=== PATIENT | female | born 1935 | race Caucasian/White ===

== ENCOUNTER → 2019-05-21 00:01 | Outpatient (BNVA) | payer MEDICARE, SELFPAY | PROVIDERS: Family Provider Nurse Practitioner Family; PCP Nurse Practitioner Family; Visit Provider Nurse Practitioner Family | DX: M19.90 Unspecified osteoarthritis, unspecified site (principal); E78.5 Hyperlipidemia, unspecified | CPT/HCPCS: 71046; 80053; 80061; 85025 ==

== ENCOUNTER → 2020-09-25 14:47 | Outpatient (BNVA) | payer MEDICARE, SELFPAY | PROVIDERS: Family Provider Nurse Practitioner Family; PCP Nurse Practitioner Family; Visit Provider Nurse Practitioner Family | DX: M81.0 Age-related osteoporosis without current pathological fracture (principal); E78.5 Hyperlipidemia, unspecified; M25.562 Pain in left knee | CPT/HCPCS: 80053; 80061; 82306; 85025 ==

== ENCOUNTER → 2020-10-07 10:34 | Day surgery (SDC) | payer MEDICARE, SELFPAY ==
[2020-10-07] MEDS: denosumab 60 mg SDV SUBCUT (11:02)
[2020-10-07 11:03] VITALS: BMI 27.4
[2020-10-07 11:07] VITALS: BP 147/74; PULSE 68; RESP 18; TEMP 36.6; O2SAT 98
== END ==
PROVIDERS: PCP Nurse Practitioner Family; Visit Provider Nurse Practitioner Family
DX: M25.569 Pain in unspecified knee (principal)
CPT/HCPCS: 73560; 73565; 96372; J0897

== ENCOUNTER → 2021-02-12 16:23 | Outpatient (BNVA) | payer MEDICARE, SELFPAY | PROVIDERS: PCP Family Medicine; Referring Provider Family Medicine; Visit Provider Nurse Practitioner Family | DX: E78.5 Hyperlipidemia, unspecified (principal); G25.81 Restless legs syndrome; H61.23 Impacted cerumen, bilateral; M25.562 Pain in left knee; G89.29 Other chronic pain; M81.0 Age-related osteoporosis without current pathological fracture; Z87.19 Personal history of other diseases of the digestive system | CPT/HCPCS: 80053; 80061; 82306; 82607; 84443; 85025 ==

== ENCOUNTER → 2021-03-18 09:14 | Outpatient (BNVA) | payer OTHER, SELFPAY | PROVIDERS: PCP Family Medicine; Visit Provider Nurse Practitioner Family | DX: R73.9 Hyperglycemia, unspecified (principal); Z87.19 Personal history of other diseases of the digestive system | CPT/HCPCS: 83036; 85025 ==

== ENCOUNTER → 2021-03-30 08:39 | Day surgery (SDC) | payer MEDICARE, SELFPAY ==
[2021-03-30 09:00] VITALS: BP 105/57; PULSE 68; RESP 18; TEMP 36.2; O2SAT 96
[2021-03-30 09:11] VITALS: BMI 26.5
[2021-03-30 09:41] LABS: Blood Urea Nitrogen 15 mg/dL (8-23); Calcium 8.5 mg/dL (8.5-10.5); Carbon Dioxide 27 mmol/L (22-29); Chloride 103 mmol/L (98-107); Glucose 102 mg/dL (65-115); Osmolality Calculated 289 mOsm/kg (285-295); Sodium 139 mmol/L (136-145)
[2021-03-30] MEDS: denosumab 60 mg SDV SUBCUT (09:51)
== END ==
PROVIDERS: PCP Family Medicine; Visit Provider Nurse Practitioner Family
DX: M81.0 Age-related osteoporosis without current pathological fracture (principal)
CPT/HCPCS: 36415; 80048; 96372; J0897

== ENCOUNTER → 2021-05-26 10:00 | Outpatient (BNVA) | payer MEDICARE, SELFPAY | PROVIDERS: PCP Nurse Practitioner Family; Visit Provider Nurse Practitioner Family | DX: Z87.19 Personal history of other diseases of the digestive system (principal) | CPT/HCPCS: 85025 ==

== ENCOUNTER → 2021-09-29 12:28 | Day surgery (SDC) | payer MEDICARE, SELFPAY ==
[2021-09-29 12:59] VITALS: BP 110/56; PULSE 69; RESP 18; TEMP 36.1; O2SAT 95
[2021-09-29 13:15] LABS: Calcium 8.5 mg/dL (8.5-10.5)
[2021-09-29] MEDS: denosumab 60 mg SDV SUBCUT (13:17)
== END ==
LOC: GILAB 12:31
PROVIDERS: PCP Nurse Practitioner Family; Visit Provider Nurse Practitioner Family
DX: M81.0 Age-related osteoporosis without current pathological fracture (principal)
CPT/HCPCS: 36415; 82310; 96372; J0897

== ENCOUNTER → 2021-10-13 10:19 | Outpatient (BNVA) | payer MEDICARE, SELFPAY | PROVIDERS: PCP Nurse Practitioner Family; Visit Provider Family Medicine | DX: E78.5 Hyperlipidemia, unspecified (principal); M19.90 Unspecified osteoarthritis, unspecified site; E55.9 Vitamin D deficiency, unspecified; Z12.31 Encounter for screening mammogram for malignant neoplasm of breast; H61.23 Impacted cerumen, bilateral; G25.81 Restless legs syndrome | CPT/HCPCS: 80053; 80061; 82306; 85025 ==

== ENCOUNTER 2021-11-17 09:19 | Outpatient (CLI) | payer MEDICARE, SELFPAY ==
--- NOTE | 2021-11-17 09:31 | MM_ITS ---
WS: [email or web address] BILATERAL SCREENING DIGITAL BREAST TOMOSYNTHESIS MAMMOGRAM WITH CAD HISTORY: SCREENING COMPARISON: 08/03/2018, 12/13/2017 and 04/26/2017 Bilateral CC and MLO views with tomosynthesis and synthetic mammography submitted. Computer aided det ection analyzed. Breast composition: The breasts are heterogeneously dense, which may obscure small masses. No suspici ous masses, microcalcifications or architectural distortion. Biopsy clip upper outer quadrant RIGHT b reast. Bilateral calcifications. Asymmetries in the LEFT breast are similar to the study from 2017. MM/[place] [id number] IMPRESSION: BI-RADS: 2-Benign FOLLOW UP: 1 Year Follow-up
== END 2021-11-17 09:20 | disposition home or self-care (01) ==
LOC: RAD 09:22
PROVIDERS: PCP Nurse Practitioner Family; Visit Provider Family Medicine
DX: M17.12 Unilateral primary osteoarthritis, left knee (principal); Z12.31 Encounter for screening mammogram for malignant neoplasm of breast
CPT/HCPCS: 20610; 77063; 77067; J0702; J3490

== ENCOUNTER → 2022-04-05 13:18 | Outpatient (BNVA) | payer MEDICARE, SELFPAY | PROVIDERS: PCP Nurse Practitioner Family; Visit Provider Nurse Practitioner Family | DX: E55.9 Vitamin D deficiency, unspecified (principal); E78.5 Hyperlipidemia, unspecified; G25.81 Restless legs syndrome | CPT/HCPCS: 80053; 80061; 82306; 82607; 83735; 84443; 85025 ==

== ENCOUNTER → 2022-04-06 08:52 | Day surgery (SDC) | payer MEDICARE, SELFPAY ==
[2022-04-06 09:15] VITALS: BP 148/63; PULSE 73; RESP 18; TEMP 36.4; O2SAT 97
[2022-04-06] MEDS: denosumab 60 mg SDV SUBCUT (09:21)
== END ==
PROVIDERS: PCP Nurse Practitioner Family; Visit Provider Nurse Practitioner Family
DX: M17.11 Unilateral primary osteoarthritis, right knee (principal); M81.0 Age-related osteoporosis without current pathological fracture
CPT/HCPCS: 96372; 99024; J0897

== ENCOUNTER 2022-04-23 14:42 | Outpatient (CLI) | payer MEDICARE, SELFPAY ==
--- NOTE | 2022-04-23 15:00 | XR_ITS ---
WS: [email or web address] DEXA (DUAL ENERGY X-RAY ABSORPTIOMETRY) Bone mineral density was performed using a [employer] machine. HISTORY: M81.0 - Age-related osteoporosis without current pathologic... COMPARISON: 03/06/2019 Lumbar spine BMD (L1-L3): 0.944 T score: -1.9 Z score: 0.0 Left forearm BMD: 0.511 g/cm2. T score: -4.2 Z score: -1.0 Compared to the prior study from 03/06/2019. Lumbar spine bone mineral density has decreased by 0.1%. Bilateral hips bone mineral density has decreased by 1.7%. XR/XR DEXA axial skeleton* [id number] IMPRESSION: OSTEOPOROSIS based upon the WHO classification for females. No significant change of bone mineral density within the lumbar spine or forear m.
== END 2022-04-23 14:43 | disposition home or self-care (01) ==
LOC: RAD 14:44
PROVIDERS: PCP Nurse Practitioner Family; Visit Provider Nurse Practitioner Family
DX: M81.0 Age-related osteoporosis without current pathological fracture (principal)
CPT/HCPCS: 77080

== ENCOUNTER → 2022-08-03 09:58 | Outpatient (BNVA) | payer MEDICARE, SELFPAY | PROVIDERS: PCP Nurse Practitioner Family; Visit Provider Nurse Practitioner Family | DX: M17.12 Unilateral primary osteoarthritis, left knee (principal) | CPT/HCPCS: 20610; 73560; 73565; 99214; 99398; J1100; J2795; J3301 ==

== ENCOUNTER → 2022-09-10 09:55 | Outpatient (BNVA) | payer MEDICARE, SELFPAY | PROVIDERS: PCP Nurse Practitioner Family; Visit Provider Nurse Practitioner Family | DX: E78.5 Hyperlipidemia, unspecified (principal); M81.0 Age-related osteoporosis without current pathological fracture; E55.9 Vitamin D deficiency, unspecified | CPT/HCPCS: 80053; 80061; 82306; 84443; 85025 ==

== ENCOUNTER → 2022-09-21 09:37 | Day surgery (SDC) | payer MEDICARE, SELFPAY ==
[2022-09-21 09:45] VITALS: BP 165/69; PULSE 72; RESP 18; TEMP 36.2; O2SAT 97
[2022-09-21] MEDS: denosumab 60 mg SDV SUBCUT (09:50)
--- NOTE | 2022-09-21 09:50 | PC.NURSE ---
Calcium level from 09/10/22 noted at 8.5. Prolia injection given as ordered.
== END ==
PROVIDERS: PCP Nurse Practitioner Family; Visit Provider Nurse Practitioner Family
DX: M81.0 Age-related osteoporosis without current pathological fracture (principal); Z79.899 Other long term (current) drug therapy
CPT/HCPCS: 96372; J0897

== ENCOUNTER 2022-11-26 09:20 | Outpatient (CLI) | payer MEDICARE, SELFPAY ==
--- NOTE | 2022-11-26 09:27 | MM_ITS ---
WS: [email or web address] Bilateral screening 3D tomosynthesis digital mammogram, 11/26/2022 Clinical Data: SCREENING Comparison: 11/17/2021, 08/03/2018, 12/13/2017, 05/12/2017, 04/26/2017, 01/17/2014, 01/03/2014, 10/31/2012, , 03/12/2010, 03/11/2009, 03/08/2008, 03/07/2007, 03/03/2006. Findings: The breast parenchymal pattern shows heterogeneous density. No spiculated masses or clustered calcifi cations are seen. There are no secondary signs of carcinoma. There are biopsy clips in the lateral as pect of the right breast. MM/[place] [id number] Impression: 1. Negative bilateral mammogram unchanged. 2. Recommend annual screening mammograms. BIRADS: 1-Negative FOLLOW UP: 1 Year Follow-up The CAD brick paving checker was used.
== END 2022-11-26 09:21 | disposition home or self-care (01) ==
LOC: RAD 09:24
PROVIDERS: PCP Nurse Practitioner Family; Visit Provider Nurse Practitioner Family
DX: Z12.31 Encounter for screening mammogram for malignant neoplasm of breast (principal)
CPT/HCPCS: 77063; 77067

== ENCOUNTER → 2023-04-22 09:56 | Outpatient (BNVA) | payer MEDICARE, SELFPAY | PROVIDERS: PCP Nurse Practitioner Family; Visit Provider Nurse Practitioner Family | DX: E78.5 Hyperlipidemia, unspecified (principal); M19.90 Unspecified osteoarthritis, unspecified site; G25.81 Restless legs syndrome; E55.9 Vitamin D deficiency, unspecified; M81.0 Age-related osteoporosis without current pathological fracture; G47.00 Insomnia, unspecified; R07.81 Pleurodynia | CPT/HCPCS: 80053; 80061; 82306; 82607; 83735; 84443; 85025 ==

== ENCOUNTER → 2023-05-25 17:29 | Outpatient (BNVA) | payer MEDICARE, SELFPAY | PROVIDERS: PCP Nurse Practitioner Family; Visit Provider Nurse Practitioner Family | DX: M81.0 Age-related osteoporosis without current pathological fracture (principal) | CPT/HCPCS: 80048 ==

== ENCOUNTER 2023-05-28 09:37 | Outpatient (CLI) | payer MEDICARE, SELFPAY ==
--- NOTE | 2023-05-28 10:17 | XRR_ITS ---
PROCEDURE INFORMATION: Exam: XR Lumbosacral Spine Exam date and time: 05/28/2023 10:18 AM Age: 87 years old Clinical indication: Low back pain; Prior surgery; Surgery date: 6+ months; Surgery type: Lumbar, saima hips; Additional info: M54.50 - low back pain, unspecified TECHNIQUE: Imaging protocol: Radiologic exam of the lumbosacral spine. Views: 2 or 3 views. COMPARISON: CT lumbar spine wo con* [id number] 06/21/2017 9:17 AM FINDINGS: Bones/joints: L4-L5 posterior fusion changes without hardware complication. Unchanged L1 compression deformity. No evidence of acute fracture. Stable anterolisthesis of L4 on L5 and mild rightward curvature of the lumbar spine which may partially be due to position. Multilevel spondylosis. Soft tissues: No acute findings. XR/XR lumbar spine 2-3V* [id number] IMPRESSION: No new/acute findings.
== END 2023-05-28 09:38 | disposition home or self-care (01) ==
PROVIDERS: PCP Nurse Practitioner Family; Visit Provider Nurse Practitioner Family
DX: M54.50 Low back pain, unspecified (principal)
CPT/HCPCS: 72100

== ENCOUNTER → 2023-06-20 10:21 | Outpatient (BNVA) | payer MEDICARE, SELFPAY | PROVIDERS: PCP Nurse Practitioner Family; Visit Provider Nurse Practitioner | DX: M17.12 Unilateral primary osteoarthritis, left knee | CPT/HCPCS: 20610; 73560; 73565; 99214; J1100; J2795; J3301 ==

== ENCOUNTER 2023-06-24 09:42 | Outpatient (CLI) | payer MEDICARE, SELFPAY ==
--- NOTE | 2023-06-24 10:15 | MR_ITS ---
WS: [email or web address] MRI LUMBAR SPINE NONCONTRAST HISTORY: M54.50 - Low back pain, unspecified COMPARISON: 10/09/2013 TECHNIQUE: Sagittal and axial multisequence imaging is submitted. Marked increase in the cervical lordosis and thoracic kyphosis. T3 anterior wedging, 50%. T5 anterior wedging, 20%. On the sagittal STIR sequence which included the very lower thoracic vertebral bodies there is marrow edema in portions of T10 and T11 consistent with acute compression fractures. T11 fracture by approx imately 20% without retropulsion identified. Increase in the lumbar lordosis. L4 anterolisthesis by 5.7 mm. 2 mm anterolisthesis of L5. There is b een a progression of the anterolisthesis at L4 and L5 since 2013. Patient is status post posterior alvin mbar fusion at L4-5 which is new since 2013. L1 compression fracture by 20% is chronic and stable since 2013. 2 mm retropulsion of the posterior s uperior endplate. No acute fracture in the lumbar spine. Conus terminates normally at L1-2 disc level. L1-L2: Mild annular disc bulge. Mild foraminal narrowing. L2-L3: Mild annular disc bulging and vertebral body osteophytosis. There is mild disc encroachment up on the subarticular recesses and foramina. Mild central and bilateral foraminal stenosis. Stenosis ayon s progressed since the prior study. L3-L4: Mild diffuse annular disc bulging. Ligamentum flavum and mild facet arthritis. Mild bilateral foraminal stenosis and mild central stenosis just inferior to the disc level. L4-L5: Unroofing of the disc with bilateral facet arthritis. There is a posterior lumbar fusion at L4 -5. Mild central and bilateral foraminal stenosis. L5-S1: Mild annular disc bulging. There is a shallow central disc protrusion contacting the S1 nerve roots, RIGHT greater than LEFT. Mild central and subarticular recess stenosis. Bilateral parapelvic cysts within each renal pelvis. Severe atrophy of the psoas muscles. IMPRESSION: 1. Interval posterior lumbar fusion at L4-5 which is new since 2013. 2. Very minimal increase in the grade 1 spondylolisthesis of L4 now measuring 5.7 mm. 3. New acute compression fractures are noted at T10 and T11. Incompletely visualized is these are on ly visualized on the STIR sequence of the lumbar spine. Consider further evaluation by MRI of the [facility] spine. Noncontrast MRI thoracic spine would provide additional information. 4. No new acute lumbar spine fracture. 5. Remote T3 and T5 anterior compression fractures. 6. L2-3: Mild central and bilateral foraminal stenosis with mild progression since the prior study. 7. L3-4: Mild central and bilateral foraminal stenosis. 8. L4-5: Mild central and bilateral foraminal stenosis. 9. L5-S1: Shallow central disc protrusion contacting the S1 nerve roots, RIGHT greater than LEFT. Mi ld central and subarticular recess stenosis.
== END 2023-06-24 09:43 | disposition home or self-care (01) ==
LOC: RAD 09:42
PROVIDERS: PCP Nurse Practitioner Family; Visit Provider Nurse Practitioner Family
DX: M43.16 Spondylolisthesis, lumbar region (principal); G89.29 Other chronic pain; S22.070A Wedge compression fracture of T9-T10 vertebra, initial encounter for closed fracture; S22.080A Wedge compression fracture of T11-T12 vertebra, initial encounter for closed fracture; S22.030A Wedge compression fracture of third thoracic vertebra, initial encounter for closed fracture; S22.050A Wedge compression fracture of T5-T6 vertebra, initial encounter for closed fracture; X58.XXXA Exposure to other specified factors, initial encounter; M48.07 Spinal stenosis, lumbosacral region; M51.27 Other intervertebral disc displacement, lumbosacral region
CPT/HCPCS: 72148

== ENCOUNTER 2023-10-11 10:49 | Emergency (ER) | payer MEDICARE, SELFPAY ==
[2023-10-11 10:56] VITALS: BP 180/106; PULSE 77; RESP 18; TEMP 36.4; O2SAT 95; BMI 25.6
--- NOTE | 2023-10-11 11:06 | ED_ITS ---
HPI - Extremity Injury (Upper) General: Chief Complaint: Extremity Injury, Upper Stated Complaint: fall, left hand pain Time Seen by Provider: 10/11/23 11:05 Source: patient Mode of arrival: ambulatory Limitations: no limitations History of Present Illness: Patient is a nice 88-year-old female presents to ED today with a complaint of a left hand injury that she sustained just prior to arrival after accidentally tripping and falling. Patient states that hand is the only thing she injured. Denies striking her head or LOC. MD complaint: injury to: left and hand Onset (ago): hour(s) Other Extremity Injury: Left: hand Place: outdoors (parking lot) Severity: moderate Relieving factors: immobilization Exacerbating factors: movement of extremity Context: fall and direct blow Associated symptoms: Reports no associated symptoms; Denies neck pain or weakness in extremities Review of Systems Eyes: Denies: change in vision or blurry vision Card: Denies: palpitations, lightheadedness, syncope or pre-syncope Musc: Reports: extremity pain (L hand) and extremity swelling (L hand); Denies: neck pain or back pain Skin/Breast: Reports: other (ecchymosis/swelling dorsal L hand) Neuro: Denies: numbness in extremities, weakness in extremities or sensory changes PFSH ED PFSH: Medical History Primary osteoarthritis of left knee Mass of right breast on mammogram Sleep difficulties Myalgia Abnormal mammogram Risk for falls Osteoporosis, post-menopausal Arthritis Hyperlipidemia Surgical History History of total hip replacement History of hysterectomy History of arthroscopic surgery of shoulder Previous back surgery Family History Sister Cancer sister had colon and breast cancer Brother Heart disease Social History Smoking and tobacco/nicotine status: never used tobacco/nicotine Second hand smoke exposure: No Alcohol intake: never Substance/Drug Use: never Lives independently: Yes Household members: spouse Marital status: service: No Current occupational status: retired Current gender identity: Female Special gaston needs: No Agree to transfusion: Yes Female Reproductive History: Spontaneous abortions: No Physical Exam Const: COMMON NORMALS: no acute distress, average body habitus, no limitations, healthy appearing, alert and well nourished Extremity: COMMON NORMALS: capillary refill normal GENERAL: Yes normal exam except as noted LEFT UPPER EXTREMITY: Yes hand & digits (ecchymosis/swelling dorsal ulnar L hand) Left hand and digits: Yes inspection (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) and Yes neurovascular exam (normal) OTHER: ecchymosis/swelling overlying L dorsal 3-5 MCP joints; tenderness/acute bony deformities vs chronic RA deformities noted to L 4-5 digits Neuro: COMMON NORMALS: moves all extremities, no focal motor deficits and no sensory deficits noted SENSORIUM/ORIENTATION: Yes alert Procedures Orthopedic Fracture Reduction Fracture #1: Time Out Performed: Yes Side: left Fracture Reduction Location: finger Analgesia: nerve block Technique: direct manipulation and traction/counter-traction Post Reduction X-rays Demonstrate: other (better alignment-still angulated ) Post-reduction neuro exam: intact Post-reduction vascular exam: intact Splint Applied: Yes Patient Tolerated Procedure: well Course Vital Signs: Vital signs: Vital Signs Temperature 97.5 F L 10/11/23 10:56 Pulse Rate 72 10/11/23 12:00 Respiratory Rate 17 10/11/23 12:00 Blood Pressure 176/117 10/11/23 12:00 Pulse Oximetry 95 10/11/23 12:00 Oxygen Delivery Me thod Room Air 10/11/23 12:00 MDM - Extremity Injury (Upper) Medical Decision Making Patient here following a trip and fall and injury to her left hand. She has proximal phalanx fractures of her fourth and fifth digits-fifth digit being significantly displaced. Attempted reduction/better alignment and although improved, still with quite a bit of angulation. Patient will be splinted and follow-up with orthopedics. Medical Records I reviewed the patient's medical records. Lab Data Radiology Impressions Hand X-Ray 10/11/23 11:06 IMPRESSION: 1. Angulated mid shaft fracture of the proximal fifth phalanx with significant displacement. 2. Comminuted fracture of the proximal two thirds of the fourth proximal phalanx. 3. Severe degenerative changes with [id number]-[id number] involving the IP joints with some associated mild subluxations. Degenerative changes also seen in the MP joints as well as the CMC joint of the thumb and the wrist. Finger X-Ray 10/11/23 11:44 IMPRESSION: 1. Angulated mid shaft fracture of the proximal fifth phalanx. 2. Comminuted mildly angulated fracture of the proximal fourth phalanx. 3. Severe degenerative changes as detailed above. All radiology interpretation(s) finalized by discharge Discharge Plan Discharge Patient Disposition: Home Clinical Impression: Closed fracture of proximal phalanx of ring finger Qualifiers: Encounter type: initial encounter Fracture alignment: nondisplaced Laterality: left Qualified Code(s): S62.645A - Nondisplaced fracture of proximal phalanx of left ring finger, initial encounter for closed fracture Closed fracture of proximal phalanx of little finger Qualifiers: Encounter type: initial encounter Fracture alignment: displaced Laterality: left Qualified Code(s): S62.617A - Displaced fracture of proximal phalanx of left little finger, initial encounter for closed fracture Condition: Stable Prescriptions: New hydrocodone-acetaminophen 5-325 mg tablet 1 tab PO Q6H PRN (Reason: pain) Qty: 14 0RF No Action glucosamine-chondroitin 900 mg tablet 1 mg PO DAILY calcium carbonate [Calcium 600] 600 mg calcium (1,500 mg) tablet 600 mg PO DAILY trazodone 50 mg tablet See Rx Instructions PO .qhs Qty: 30 2RF Rx Instructions: 1/2 to 1 tablet orally QHS; simvastatin 20 mg tablet See Rx Instructions .ROUTE .COMPLEX Qty: 90 1RF Dose Instruction: Take 1 tablet by mouth once daily Rx Instructions: Take 1 tablet by mouth once daily ropinirole 2 mg tablet See Rx Instructions .ROUTE .COMPLEX Qty: 270 1RF Dose Instruction: TAKE 1 TABLET BY MOUTH IN THE MORNING AND 1 TO 2 IN THE EVENING Rx Instructions: TAKE 1 TABLET BY MOUTH IN THE MORNING AND 1 TO 2 IN THE EVENING meloxicam 15 mg tablet See Rx Instructions .ROUTE .COMPLEX Qty: 90 1RF Dose Instruction: Take 1 tablet by mouth once daily Rx Instructions: Take 1 tablet by mouth once daily Prolia 60 mg/mL syringe 60 mg SUBCUT ONCE Qty: 1 0RF Gel-One 30 mg/3 mL syringe 3 ml intra-articular ONCE Qty: 3 0RF triamcinolone acetonide [Kenalog] 40 mg/mL suspension 40 mg intra-articular ONCE Qty: 1 0RF bupivacaine (PF) 0.5 % (5 mg/mL) solution 5 mg intra-articular ONCE Qty: 2 0RF lidocaine (PF) 10 mg/mL (1 %) solution 10 mg intra-articular ONCE Qty: 2 0RF tizanidine 2 mg tablet 2 mg PO Q8H PRN (Reason: muscle spasticity) Qty: 30 0RF Monovisc 88 mg/4 mL syringe 88 mg intra-articular .every 6 months PRN (Reason: For OA) 180 Days Qty: 4 0RF Fish Oil Capsule 1,000 mg PO DAILY cholecalciferol (vitamin D3) [Vitamin D3] 25 mcg (1,000 unit) Tablet 25 mcg PO DAILY Discharge Orders: Discharge ED (Routine); Ordered 10/11/23 Ordered By: Betina Montemayor Referrals: Patsy Banuelos FNP [Primary Care Provider] - Patient Instructions: Fractures - Phalanx (Finger), Finger Fracture (ED) Activity Restrictions/Additional Instructions: As discussed you need to stay in your splint at all times until follow-up with orthopedics. Coding Level of Care Code ED Desktop Publishing Operator for Ayesha Jung
--- NOTE | 2023-10-11 11:06 | XR_ITS ---
WS: [email or web address] Exam: XR hand LT min 3V* [id number] Date/Time of Exam: 10/11/2023 11:10 AM Reason For Exam: trauma There is a midshaft fracture of the proximal fifth phalanx with dorsal angulation of the distal fragm ent. There is also a nondisplaced comminuted fracture of the distal end of the fourth proximal phalan x. The base of the proximal fourth phalanx is also fractured with some impaction. No other acute frac tures are identified. Severe degenerative changes in the IP joints with [id number] and subluxations . Moderate degenerative change in the MP joints as well as the CMC joint of the thumb. 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 XR/XR hand LT min 3V* [id number] IMPRESSION: 1. Angulated mid shaft fracture of the proximal fifth phalanx with significant displacement. 2. Comminuted fracture of the proximal two thirds of the fourth proximal phalan x. 3. Severe degenerative changes with [id number] involving the IP joints with s ome associated mild subluxations. Degenerative changes also seen in the MP join ts as well as the CMC joint of the thumb and the wrist.
--- NOTE | 2023-10-11 11:44 | XR_ITS ---
WS: [email or web address] Exam: XR finger LT min 2V [id number] Date/Time of Exam: 10/11/2023 11:44 AM Reason For Exam: pinky finger fx; post reduction The fourth and fifth fingers are targeted for radiographic evaluation. There is a displaced angulated midshaft fracture of the fifth proximal phalanx. There is dorsal angul ation of the distal fragment. There is also a comminuted fracture of the proximal fourth phalanx with some dorsal angulation of the phalangeal shaft. Mild dorsal angulation of the distal fragment noted. Severe degenerative change in the IP joints. Significant ulnar deviation of the fourth finger. Soft tissue swelling noted. XR/XR finger LT min 2V [id number] IMPRESSION: 1. Angulated mid shaft fracture of the proximal fifth phalanx. 2. Comminuted mildly angulated fracture of the proximal fourth phalanx. 3. Severe degenerative changes as detailed above.
[2023-10-11 12:00] VITALS: BP 176/117; PULSE 72; RESP 17; O2SAT 95
--- NOTE | 2023-10-12 09:08 | DCPLANNER ---
Message sent to Ortho for follow up-As discussed you need to stay in your splint at all times until follow-up with orthopedics.
== END 2023-10-11 12:31 | disposition home or self-care (01) ==
PROVIDERS: Emergency Provider Physician Assistant; PCP Nurse Practitioner Family
DX: S62.645A Nondisplaced fracture of proximal phalanx of left ring finger, initial encounter for closed fracture (principal); S62.617A Displaced fracture of proximal phalanx of left little finger, initial encounter for closed fracture; E78.5 Hyperlipidemia, unspecified; W01.0XXA Fall on same level from slipping, tripping and stumbling without subsequent striking against object, initial encounter
CPT/HCPCS: 26725; 29125; 73130; 73140; 99283

== ENCOUNTER → 2023-11-18 08:16 | Outpatient (BNVA) | payer MEDICARE, SELFPAY | PROVIDERS: PCP Nurse Practitioner Family; Visit Provider Nurse Practitioner | DX: M17.12 Unilateral primary osteoarthritis, left knee (principal) | CPT/HCPCS: 20610; J1100; J2795; J3301 ==

== ENCOUNTER → 2023-11-22 08:57 | Outpatient (BNVA) | payer MEDICARE, SELFPAY | PROVIDERS: PCP Nurse Practitioner Family; Visit Provider Nurse Practitioner Family | DX: E78.5 Hyperlipidemia, unspecified (principal); Z79.899 Other long term (current) drug therapy | CPT/HCPCS: 80053; 80061; 82306; 85025 ==

== ENCOUNTER 2024-01-03 08:41 | Outpatient (CLI) | payer MEDICARE, SELFPAY ==
--- NOTE | 2024-01-03 09:00 | MM_ITS ---
WS: [email or web address] BILATERAL 3D TOMOSYNTHESIS DIGITAL SCREENING MAMMOGRAPHY WITH CAD CLINICAL INFORMATION: SCREENING HISTORY: Screening mammogram. No current complaints. COMPARISON: 11/26/2022 TECHNIQUE: Bilateral CC and MLO views. FINDINGS: The breasts are composed of heterogeneous fibroglandular density tissue, which can limit the detectio n of small underlying mass lesions. No suspicious mass, asymmetry, calcifications, or architectural d istortion. No evidence of malignancy. Biopsy clips RIGHT breast. Incidental punctate and secretory ca lcifications. Dense nodular breast tissue upper outer LEFT breast stable since 2019 MM/[place] [id number] IMPRESSION: BI-RADS: 2-Benign FOLLOW UP: 1 Year Follow-up Recommend return to annual screening mammography.
== END 2024-01-03 08:42 | disposition home or self-care (01) ==
PROVIDERS: PCP Nurse Practitioner Family; Visit Provider Nurse Practitioner Family
DX: Z12.31 Encounter for screening mammogram for malignant neoplasm of breast (principal)
CPT/HCPCS: 77063; 77067

== ENCOUNTER → 2024-01-27 08:45 | Outpatient (BNVA) | payer MEDICARE, SELFPAY | PROVIDERS: PCP Nurse Practitioner Family; Visit Provider Nurse Practitioner | DX: M17.12 Unilateral primary osteoarthritis, left knee (principal); Z71.89 Other specified counseling | CPT/HCPCS: 20610; J1100; J2795; J3301 ==

== ENCOUNTER → 2024-04-27 08:46 | Outpatient (BNVA) | payer MEDICARE, SELFPAY | PROVIDERS: PCP Nurse Practitioner Family; Visit Provider Nurse Practitioner | DX: M17.12 Unilateral primary osteoarthritis, left knee (principal); Z71.89 Other specified counseling | CPT/HCPCS: 20610; J1100; J2795; J3301 ==

== ENCOUNTER → 2024-07-27 08:09 | Outpatient (BNVA) | payer MEDICARE, SELFPAY | PROVIDERS: PCP Nurse Practitioner Family; Visit Provider Nurse Practitioner | DX: M17.12 Unilateral primary osteoarthritis, left knee (principal); Z71.89 Other specified counseling | CPT/HCPCS: 20610; 99213; J7327 ==

== ENCOUNTER → 2024-08-17 08:18 | Outpatient (BNVA) | payer MEDICARE, SELFPAY | PROVIDERS: PCP Nurse Practitioner Family; Visit Provider Nurse Practitioner Family | DX: E78.5 Hyperlipidemia, unspecified (principal); E55.9 Vitamin D deficiency, unspecified; U07.1 COVID-19 | CPT/HCPCS: 80053; 80061; 82306; 82607; 82728; 82746; 83735; 84443; 85025 ==

== ENCOUNTER 2024-08-23 13:12 | Outpatient (CLI) | payer MEDICARE, SELFPAY ==
--- NOTE | 2024-08-23 13:20 | XR_ITS ---
WS: [email or web address] SCREENING DEXA SCAN [facility] CLINICAL INFORMATION: M81.0 - Age-related osteoporosis without current patholog... COMPARISON: 2021 FINDINGS: Left forearm bone mineral density measures 0.48. This corresponds to a T score of -4.5 and Z score of -1.1. Right forearm bone mineral density measures 0.58. This corresponds to a T score of -3.4 of and Z score of 0.0. XR/XR DEXA axial skeleton* [id number] IMPRESSION: Osteoporosis LEFT and RIGHT forearm Patient's FRAX calculated 10 year probability for major osteoporotic fracture i s % and osteoporotic hip fracture is %. Bone mineral density decrease -5.5% LEFT forearm and -6.0% RIGHT forearm
== END 2024-08-23 13:13 | disposition home or self-care (01) ==
PROVIDERS: PCP Nurse Practitioner Family; Visit Provider Nurse Practitioner Family
DX: M81.0 Age-related osteoporosis without current pathological fracture (principal)
CPT/HCPCS: 77080

== ENCOUNTER → 2024-10-26 07:55 | Outpatient (BNVA) | payer MEDICARE, SELFPAY | PROVIDERS: PCP Nurse Practitioner Family; Visit Provider Nurse Practitioner | DX: M17.12 Unilateral primary osteoarthritis, left knee (principal); Z71.89 Other specified counseling | CPT/HCPCS: 20610; J1100; J2795; J3301; J9999 ==

== ENCOUNTER → 2024-11-30 13:29 | Outpatient (BNVA) | payer MEDICARE, SELFPAY | PROVIDERS: PCP Nurse Practitioner Family; Visit Provider Nurse Practitioner Family | DX: M10.9 Gout, unspecified (principal) | CPT/HCPCS: 84550; 85651 ==

== ENCOUNTER → 2025-01-25 08:30 | Outpatient (BNVA) | payer MEDICARE, SELFPAY | PROVIDERS: PCP Nurse Practitioner Family; Visit Provider Nurse Practitioner | DX: M17.12 Unilateral primary osteoarthritis, left knee (principal); Z71.89 Other specified counseling | CPT/HCPCS: 20610; J1100; J2795; J3301; J9999 ==

== ENCOUNTER → 2025-02-13 12:46 | Outpatient (BNVA) | payer MEDICARE, SELFPAY | PROVIDERS: PCP Nurse Practitioner Family; Visit Provider Nurse Practitioner Family | DX: G25.81 Restless legs syndrome (principal); E55.9 Vitamin D deficiency, unspecified; E78.5 Hyperlipidemia, unspecified | CPT/HCPCS: 80053; 80061; 82607; 83735; 84443; 85025 ==

== ENCOUNTER 2025-02-27 08:37 | Outpatient (CLI) | payer MEDICARE, SELFPAY ==
--- NOTE | 2025-02-27 08:50 | MM_ITS ---
WS: [email or web address] BILATERAL SCREENING DIGITAL TOMOSYNTHESIS MAMMOGRAM WITH CAD HISTORY: SCREENING COMPARISON: 01/03/2024, 11/26/2022, 11/17/2021 Bilateral CC and MLO views with tomosynthesis and synthetic mammography submitted. Computer aided detection analyzed. Breast composition: The breasts are heterogeneously dense, which may obscure small masses. No suspicious masses, microcalcifications or architectural distortion. Numerous calcifications and asymmetries in each breast. These asymmetries are stable over multiple prior studies. Biopsy clips are present in the RIGHT breast associated with several calcification groups. There has been no progression or adverse change in appearance of the calcifications. MM/MM scr tomosynthesis [id number] IMPRESSION: BI-RADS: 2 - Benign FOLLOW UP: 1 Year Follow-up
== END 2025-02-27 08:38 | disposition home or self-care (01) ==
LOC: MOBLMAM 08:39
PROVIDERS: PCP Nurse Practitioner Family; Visit Provider Nurse Practitioner Family
DX: Z12.31 Encounter for screening mammogram for malignant neoplasm of breast (principal); R92.333 Mammographic heterogeneous density, bilateral breasts; N64.89 Other specified disorders of breast; Z96.89 Presence of other specified functional implants
CPT/HCPCS: 77063; 77067

== ENCOUNTER → 2025-04-01 09:14 | Outpatient (BNVA) | payer MEDICARE, SELFPAY | PROVIDERS: PCP Nurse Practitioner Family; Visit Provider Nurse Practitioner Family | DX: R79.89 Other specified abnormal findings of blood chemistry (principal) | CPT/HCPCS: 80048 ==

== ENCOUNTER → 2025-04-26 08:43 | Outpatient (BNVA) | payer MEDICARE, SELFPAY | PROVIDERS: PCP Nurse Practitioner Family; Visit Provider Nurse Practitioner | DX: M17.12 Unilateral primary osteoarthritis, left knee (principal); Z71.89 Other specified counseling | CPT/HCPCS: 20610; J1100; J2795; J3301; J9999 ==